=== PATIENT | female | born 1995 | race Two or more races ===

== ENCOUNTER → 2024-06-15 | Outpatient (CLI) | payer OTHER | LOC: M PLALAB 15:04 | PROVIDERS: ATTEND Nurse Practitioner Family | DX: Z34.82 Encounter for supervision of other normal pregnancy, second trimester (principal) ==

== ENCOUNTER → 2024-06-19 | Outpatient (CLI) | payer OTHER | LOC: M RAD 14:25 | PROVIDERS: ATTEND Nurse Practitioner Family | DX: Z34.82 Encounter for supervision of other normal pregnancy, second trimester (principal) ==

== ENCOUNTER → 2024-07-19 | Outpatient (CLI) | payer MEDICAID, OTHER ==
[2024-07-19 18:18] LABS: HEMATOCRIT 32.5 % (36.0-47.0); HEMOGLOBIN 10.8 g/dl (12.0-15.5); MEAN CORPUSCULAR HGB CONC 33.2 g/dl (32.0-36.5); MEAN CORPUSCULAR VOLUME 93.4 fl (80.0-96.0); PLATELET COUNT, AUTOMATED 249 10^3/uL (150-450); RED BLOOD COUNT 3.48 10^6/uL (4.00-5.40); WHITE BLOOD COUNT 9.2 10^3/uL (4.0-10.0)
[2024-07-19 18:44] LABS: GLUCOSE CHALLENGE TEST 1 HOUR 127 MG/DL (LESS THAN 140)
[2024-07-19 19:18] LABS: HIV 1&2 SCREEN NEGATIVE (NEGATIVE)
[2024-07-19 19:26] LABS: HEPATITIS C VIRUS ABY INDEX < 0.02 INDEX (<0.8)
[2024-07-19 21:24] LABS: GC DNA AMPLIFICATION NEGATIVE (NEGATIVE)
== END ==
LOC: M PLALAB 14:46
PROVIDERS: ATTEND Nurse Practitioner Family
DX: Z34.82 Encounter for supervision of other normal pregnancy, second trimester (principal)

== ENCOUNTER 2024-08-28 16:40 | Emergency (ER) | payer MEDICAID, OTHER ==
[2024-08-28] MEDS ORDERED: MULTTAB20 PO (17:02)
== END 2024-08-28 16:43 | disposition admitted as inpatient to this hospital (09) ==
LOC: M ED 16:40
DX: Z53.21 Procedure and treatment not carried out due to patient leaving prior to being seen by health care provider (principal)

== ENCOUNTER 2024-08-28 16:47 | Outpatient (CLI) | payer OTHER, MEDICAID ==
[~2024-08-28] VITALS: Ht 154.9 cm; Wt 84.1 kg
[2024-08-28] MEDS ORDERED: MULTTAB20 PO (17:02)
[2024-08-28 17:06] VITALS: BP 111/60
[2024-08-28] MEDS ORDERED: HOME MED LIST COMPLETE! XX SCH (17:10)
== END 2024-08-28 18:46 | disposition home or self-care (01) ==
LOC: M LDO 16:47
PROVIDERS: ATTEND Obstetrics & Gynecology
DX: O36.8130 Decreased fetal movements, third trimester, not applicable or unspecified (principal); Z3A.32 32 weeks gestation of pregnancy
CPT/HCPCS: 59025; 76815; G0463

== ENCOUNTER → 2024-09-26 | Outpatient (REF) | payer MEDICAID, OTHER ==
[~2024-09-26] MED LIST: MULTTAB20 PO
== END ==
LOC: M PLALAB 09:56
PROVIDERS: ATTEND Nurse Practitioner Family
DX: Z3A.36 36 weeks gestation of pregnancy (principal)

== ENCOUNTER 2024-10-11 09:55 | Inpatient (IN) | payer OTHER, MEDICAID ==
[~2024-10-11] VITALS: Ht 154.9 cm; Wt 91.9 kg
[2024-10-11] VITALS (7 sets, daily range): BP systolic 116–131; BP diastolic 70–75; TEMP 97.6; O2SAT 95–98
[2024-10-11] MEDS ORDERED: OXYTOCIN INJ 10UNITS/ML 1ML VIAL IM PRN (11:10)
[2024-10-11] MEDS ORDERED: OXYTOCIN DRIP 30 UNITS in IV 1 EA IV PRN (11:10)
[2024-10-11] MEDS ORDERED: LIDOCAINE 1% MDV 20ML VIAL INFIL PRN (11:10)
[2024-10-11] MEDS ORDERED: TRANEXAMIC ACID INJection 1,000 MG in NS 100 ML IV PRN (11:10)
[2024-10-11] MEDS ORDERED: METHYLERGONOVINE MALEATE 0.2MG/ML 1ML VIAL IM PRN (11:10)
[2024-10-11] MEDS ORDERED: CARBOPROST TROMETHAMINE 250 MCG/ML AMP IM PRN (11:10)
[2024-10-11 12:01] LABS: HEMATOCRIT 33.4 % (36.0-47.0); HEMOGLOBIN 10.5 g/dl (12.0-15.5); MEAN CORPUSCULAR HEMOGLOBIN 26.9 pg (27.0-33.0); MEAN CORPUSCULAR HGB CONC 31.4 g/dl (32.0-36.5); MEAN CORPUSCULAR VOLUME 85.6 fl (80.0-96.0); PLATELET COUNT, AUTOMATED 216 10^3/uL (150-450); WHITE BLOOD COUNT 8.5 10^3/uL (4.0-10.0)
[2024-10-11 13:12] LABS: HIV 1&2 SCREEN NEGATIVE (NEGATIVE)
[2024-10-11 13:20] LABS: HEPATITIS C VIRUS ABY INDEX 0.02 INDEX (<0.8)
[2024-10-11] MEDS: LACTATED RINGER'S 1000 ML IV STA ×2 (14:23→14:42)
[2024-10-11] MEDS: ceFAZolin SODIUM 2 GM in DEXTROSE 5% (D5W) ADV/MINI-BAG 50 ML IV ONE (14:25)
[2024-10-11] MEDS: LR 1,000 ML IV SCH ×2 (14:42→16:22)
[2024-10-11] MEDS: BICITRA 30ML SOLN UDC PO ONE (14:43)
[2024-10-11] MEDS: AZITHROMYCIN INJ 500 MG, VIAL MATE ADAPTER 1 EACH in NS 250 ML IV ONE (14:43)
[2024-10-11] MEDS ORDERED: PHENYLephrine 500MCG 5ML (100MCG/ML) SYRINGE As Ordered ONE (15:09)
[2024-10-11] MEDS ORDERED: fentaNYL 100 MCG/2 ML INJECTION As Ordered ONE (15:09)
[2024-10-11] MEDS ORDERED: MORPHINE PRES-FREE INJ 10 MG/10 ML VIAL As Ordered ONE (15:09)
[2024-10-11] MEDS ORDERED: OXYTOCIN 30UNITS IN 0.9% NaCl 500ML IV BAG As Ordered ONE (15:10)
[2024-10-11] MEDS ORDERED: GLYCOPYRROLATE INJ 0.2 MG/ML 2 ML VIAL As Ordered ONE (15:30)
[2024-10-11] MEDS ORDERED: ONDANSETRON 4MG 2ML VIAL As Ordered ONE (15:30)
[2024-10-11] MEDS ORDERED: PHENYLEPHRINE 10MG/ML 1ML VIAL As Ordered ONE (15:35)
[2024-10-11 15:45] LABS: CORD GAS ABE A -3.2; CORD GAS ABE V -2.1; CORD GAS HCO3 A 25.6 MMOL/L; CORD GAS HCO3 V 24.7 MMOL/L; CORD GAS O2 SAT A 25.8 %; CORD GAS O2 SAT V 52.1 %; CORD GAS PCO2 A 62.5 mmHg; CORD GAS PCO2 V 49.9 mmHg; CORD GAS PH A 7.231 UNITS; CORD GAS PH V 7.312 UNITS; CORD GAS PO2 A 15.4 mmHg; CORD GAS PO2 V 22.7 mmHg; CORD GAS SBC A 20.2 MMOL/L; CORD GAS SBC V 21.6 MMOL/L; CORD GAS TCO2 A 27.6 MMOL/L; CORD GAS TCO2 V 26.2 MMOL/L
[2024-10-11] MEDS ORDERED: KETOROLAC 30 MG/ML 1ML VIAL As Ordered ONE (15:46)
[2024-10-11] MEDS ORDERED: RHOGAM 300MCG (1500IU) INJ IM SCH (16:05)
[2024-10-11] MEDS ORDERED: ONDANSETRON 4MG 2ML VIAL IV PRN (16:05)
[2024-10-11] MEDS ORDERED: fentaNYL 100 MCG/2 ML INJECTION IV PRN (16:05)
[2024-10-11] MEDS ORDERED: MOM 30ML SUSPENSION UDC PO PRN (16:05)
[2024-10-11] MEDS ORDERED: oxyCODONE 5MG TAB PO PRN (16:05)
[2024-10-11] MEDS ORDERED: SIMETHICONE 80MG CHEW TAB PO PRN (16:05)
[2024-10-11] MEDS ORDERED: HYDROMORPHONE HCL 0.5 MG/ 0.5 ML SYRINGE IV PRN (16:05)
[2024-10-11] MEDS ORDERED: MEPERIDINE 25 MG/ML 1ML VIAL IV PRN (16:05)
[2024-10-11] MEDS ORDERED: CALCIUM CARBONATE 500 MG CHEW U/D PO PRN (16:05)
[2024-10-11] MEDS ORDERED: PERCOCET 5MG/325MG TAB PO PRN (16:05)
[2024-10-11] MEDS: BUTORPHANOL 2 MG/ML 1ML VIAL IV ONE (16:20)
[2024-10-11] MEDS: PROMETHAZINE 25MG/ML 1ML VIAL IV ONE (16:20)
[2024-10-11] MEDS: OXYTOCIN DRIP 30 UNITS in IV 1 EA IV SCH (16:22)
[2024-10-11] MEDS: ONDANSETRON 4MG 2ML VIAL IV PRN (18:57)
[2024-10-11] MEDS: PERCOCET 5MG/325MG TAB PO PRN (18:57)
[2024-10-11] MEDS: DOCUSATE SODIUM 100MG CAPSULE PO SCH (21:00)
[2024-10-11] MEDS: KETOROLAC 30 MG/ML 1ML VIAL IV SCH (21:08)
[2024-10-11] MEDS: PROMETHAZINE 25 MG TAB PO PRN (21:14)
[2024-10-12 02:15] VITALS: BP 128/72; O2SAT 97
[2024-10-12 06:10] VITALS: BP 119/66; O2SAT 97
[2024-10-12 06:37] LABS: HEMATOCRIT 25.1 % (36.0-47.0); MEAN CORPUSCULAR HEMOGLOBIN 26.9 pg (27.0-33.0); MEAN CORPUSCULAR HGB CONC 32.3 g/dl (32.0-36.5); MEAN CORPUSCULAR VOLUME 83.4 fl (80.0-96.0); PLATELET COUNT, AUTOMATED 170 10^3/uL (150-450); RED BLOOD COUNT 3.01 10^6/uL (4.00-5.40); WHITE BLOOD COUNT 9.8 10^3/uL (4.0-10.0)
[2024-10-12 06:38] LABS: HEMOGLOBIN 8.1 g/dl (12.0-15.5)
[2024-10-12 10:00] VITALS: BP 121/73; O2SAT 96
[2024-10-12] MEDS: FERROUS SULFATE 325MG TAB PO SCH (10:07)
[2024-10-12] MEDS: PRENATAL VITAMINS CHEWABLE TABLET PO SCH (10:07)
[2024-10-12 14:00] VITALS: BP 117/67; O2SAT 98
[2024-10-12 18:00] VITALS: BP 119/69; O2SAT 100
[2024-10-12] MEDS: IBUPROFEN 800 MG TAB PO SCH (18:08)
[2024-10-12 22:00] VITALS: BP 134/65; O2SAT 98
[2024-10-13 02:00] VITALS: BP 126/60; O2SAT 100
[2024-10-13 05:58] VITALS: BP 117/64; O2SAT 98
[2024-10-13] MEDS ORDERED: COLA100C5 PO (09:00)
[2024-10-13] MEDS ORDERED: IBUP80TA PO (09:00)
[2024-10-13] MEDS ORDERED: MEASLES,MUMPS,RUBELLA VACCINE INJ (MMR-II) SC.IMMUN ONE (09:00)
[2024-10-13 10:00] VITALS: BP 134/78; O2SAT 98
== END 2024-10-13 15:00 | disposition home or self-care (01) | DRG 540 ==
LOC: M LDO 09:55 → M LDI 10:54 → M OBS 17:45
PROVIDERS: ADMIT Advanced Practice Midwife; ATTEND Obstetrics & Gynecology
PROC: 10D00Z1 Extraction of Products of Conception, Low, Open Approach (ICD-10-PCS; principal; 2024-10-11 14:27)
DX: O76 Abnormality in fetal heart rate and rhythm complicating labor and delivery (principal); Z37.0 Single live birth; Z3A.38 38 weeks gestation of pregnancy

== ENCOUNTER → 2025-03-19 | Outpatient (REF) | payer OTHER ==
[~2025-03-19] MED LIST changes: +COLA100C5 PO; +IBUP80TA PO
[2025-03-21 13:47] LABS: HPV APTIMA Not Detected (Not Detected)
== END ==
LOC: M SFHCWAGY 13:22
PROVIDERS: ATTEND Obstetrics & Gynecology
DX: Z12.4 Encounter for screening for malignant neoplasm of cervix (principal)
CPT/HCPCS: 87624; G0123